=== PATIENT | male | born 1970 | race Caucasian/White ===

== ENCOUNTER 2022-11-13 13:40 | Outpatient (CLI) | payer OTHER, SELFPAY ==
--- NOTE | ~2022-11-13 | US_ITS ---
EXAMINATION: US art doppler w press LE BI DATE: 11/13/2022 14:55 INDICATION: Unspecified disorder circulatory system TECHNIQUE: Segmental pressures and plethysmographic and Doppler waveforms of the brachial and lower e xtremity arteries were obtained. COMPARISON: None. FINDINGS: Right and left brachial artery pressures of 132 mm Hg and 128 mm Hg, respectively, are concordant (no rmal difference <= 30 mmHg). The right and left high-thigh pressure indices are unable to be obtained due to inability to occlude the vessels at either high thigh (normal > 1.2). The right ankle-brachial index (MARY) is 1.23 (normal >= 0.9-1). The right great toe-brachial index (T BI) is 0.72 (normal >= 0.6-0.8). The right lower extremity segmental pressure gradients are normal (n ormal gradients <= 20-30 mmHg between adjacent levels on the same leg or the same levels on the two l egs). Arterial waveforms are triphasic with brisk systolic upstrokes throughout the arteries of the r ight lower limb. The left MARY is 1.27. The left TBI is 0.93. The left lower extremity segmental pressure gradients are normal. Arterial waveforms are triphasic with brisk systolic upstrokes throughout the arteries of th e left lower limb. IMPRESSION: 1. Normal MARY's and TBI's bilaterally. No significant arterial occlusive disease. Reviewed, dictated and finalized at location A. IMPRESSION: 1. Normal MARY's and TBI's bilaterally. No significant arterial occlusive diseas e.
== END 2022-11-13 13:41 | disposition home or self-care (01) ==
PROVIDERS: PCP Physician Assistant; Visit Provider Physician Assistant
DX: I99.9 Unspecified disorder of circulatory system (principal)
CPT/HCPCS: 93923